=== PATIENT | male | born 1990 | race Two or more races ===

== ENCOUNTER 2018-10-06 16:16 | Emergency (ER) | payer OTHER ==
[~2018-10-06] VITALS: Ht 188 cm; Wt 81.8 kg
[2018-10-06 17:13] LABS: BASO % 1 % (0-3); EOS # 0.7 x10^3/uL (0.0-0.7); EOS % 12 % (0-3); HEMATOCRIT 45.5 % (39.0-53.0); LYMPH # 1.7 x10^3/uL (1.0-4.8); LYMPH % 28 % (24-48); MEAN CORPUSCULAR HEMOGLOBIN 33 pg (25-35); MEAN CORPUSCULAR HGB CONC 35 g/dL (31-37); MEAN CORPUSCULAR VOLUME 93 fL (79-100); MONO # 0.4 x10^3/uL (0.0-1.1); MONO % 7 % (0-9); NEUT # 3.2 x10^3uL (1.8-7.7); NEUT % 53 % (31-73); PLATELET COUNT 227 x10^3/uL (140-400); RED BLOOD COUNT 4.91 x10^6/uL (4.30-5.70); RED CELL DISTRIBUTION WIDTH 13.3 % (11.5-14.5); WHITE BLOOD COUNT 6.1 x10^3/uL (4.0-11.0)
--- NOTE | 2018-10-06 17:17 | EKG ---
[address] [address] Test Date: 2018-10-06 Test Time: 16:34:11 Pat Name: LEÓN PHILLIPS Department: Room: Gender: M [employer] Driver: : 1990 Requested By: SUJEY SHANKS Order Number: [id number] Reading MD: Cecilio Sanchez Measurements Intervals [place] Rate: 82 P: 47 [place]: 162 QRS: 39 QRSD: 98 T: -165 QT: 384 QTc: 452 Interpretive Statements SINUS RHYTHM ST & T ABNORMALITY, CONSIDER ANTERIOR ISCHEMIA OR LEFT VENTRICULAR STRAIN LATERAL ISCHEMIA OR LEFT VENTRICULAR STRAIN ABNORMAL ECG RI6.01 No previous ECG available for comparison Electronically Signed On 10-09-2018 9:02:31 ADMITTING SUPERVISOR by Cecilio Sanchez
[2018-10-06 17:19] LABS: BARBITURATES NEG (NEG); BENZODIAZEPINES NEG (NEG); CANNABINOIDS NEG (NEG); COCAINE NEG (NEG); METHADONE NEG (NEG); OPIATES NEG (NEG); PHENCYCLIDINE NEG (NEG)
[2018-10-06 17:21] LABS: AMPHETAMINE/METHAMPHETAMINE NEG (NEG)
[2018-10-06 17:33] LABS: ALBUMIN 3.9 g/dL (3.4-5.0); ALBUMIN/GLOBULIN RATIO 1.2 (1.0-1.7); CREATININE 1.1 mg/dL (0.7-1.3); GFR 79.1; MAGNESIUM 1.9 mg/dL (1.8-2.4); POTASSIUM 3.9 mmol/L (3.5-5.1); TOTAL BILIRUBIN 0.4 mg/dL (0.2-1.0); TOTAL PROTEIN 7.2 g/dL (6.4-8.2)
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
--- NOTE | 2018-10-06 18:36 | RAD ---
CHEST PA LATERAL History: pacemaker problems, pt shielded Comparison: None. Findings: The cardiomediastinal silhouette is normal. Pulmonary vasculature is normal. The lungs are clear. No pleural effusion or pneumothorax is seen. There is no acute bone abnormality. Dual-lead left-sided ICD is present. Sternal wire noted. IMPRESSION: No acute cardiopulmonary process. Electronically signed by: Gaudencio Orellana MD (10/06/2018 6:33 PM) [facility]
[2018-10-06] MEDS ORDERED: prednisoLONE SOD PHOSPHATE 15 MG/5 ML SOLUTION ONE (18:54)
[2018-10-06 19:20] VITALS: BP 132/70
== END 2018-10-06 19:37 | disposition home or self-care (01) ==
LOC: ER 16:16
DX: T82.897A Other specified complication of cardiac prosthetic devices, implants and grafts, initial encounter (principal); R20.0 Anesthesia of skin; I11.9 Hypertensive heart disease without heart failure; I43 Cardiomyopathy in diseases classified elsewhere
CPT/HCPCS: 36415; 71046; 80053; 80307; 82550; 83735; 83880; 84484; 85025; 93005; 99284-25

== ENCOUNTER 2019-04-03 05:14 | Emergency (ER) | payer SELFPAY ==
[~2019-04-03] VITALS: Ht 188 cm; Wt 81.8 kg
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
[2019-04-03 05:25] VITALS: BP 135/77
[2019-04-03] MEDS ORDERED: ASPIRIN 81 MG TAB.CHEW PO ONE (05:30)
[2019-04-03] MEDS ORDERED: IV RINGERS SOLUTION,LACTATED 1,000 ML IV SCH (05:30)
== END 2019-04-03 05:50 | disposition home or self-care (01) ==
LOC: ER 05:14
DX: T82.198A Other mechanical complication of other cardiac electronic device, initial encounter (principal); I11.9 Hypertensive heart disease without heart failure; I43 Cardiomyopathy in diseases classified elsewhere; F17.210 Nicotine dependence, cigarettes, uncomplicated; Z95.0 Presence of cardiac pacemaker
CPT/HCPCS: 99281

== ENCOUNTER 2019-04-23 07:26 | Emergency (ER) | payer SELFPAY ==
[~2019-04-23] VITALS: Ht 188 cm; Wt 81.8 kg
[2019-04-23 07:26] VITALS: BP 127/76
--- NOTE | 2019-04-23 07:49 | ED.ADGEN ---
Past History Past Medical History: Other Past Surgical History: Pacemaker, Other Smoking: Cigarettes Alcohol Use: None Drug Use: None Adult General Chief Complaint Chief Complaint Cough, chest soreness HPI HPI Patient is a 28-year-old male presents with cough, chest soreness with some shortness of breath for the past 2 weeks. Patient also reports was hoarseness. No fever chills, nausea vomiting or sweats. A gradually worse. Sputum is light yellow neck times screen. Denies history of asthma, although he has used an albuterol inhaler in the past. No fever chills or sweats. No other acute symptoms or complaints. History of hypertrophic cardiomyopathy with AICD placement. Patient states he's the process of getting established with a local primary care physician.[] Review of Systems Review of Systems Review symptoms as per history of present illness. All other review symptoms are negative. All other systems were reviewed and found to be within normal limits, except as documented in this note. Allergies Allergies Allergies Coded Allergies Type Severity Reaction Last Updated Verified No Known Drug Allergies 10/06/18 No Physical Exam Physical Exam Constitutional: Well developed, well nourished, no acute distress, non-toxic appearance. [] HENT: Normocephalic, atraumatic, bilateral external ears normal, oropharynx moist, no oral exudates, nose normal, voice hoarseness. [] Eyes: PERRLA, EOMI, conjunctiva normal, no discharge. [] Neck: Normal range of motion, no tenderness, supple, no stridor. [] Cardiovascular:Heart rate regular rhythm, no murmur [] Lungs & Thorax: Respirations unlabored, coarse rhonchi bilaterally, no wheezes or rales appreciated.[] Abdomen: Bowel sounds normal, soft, no tenderness. [] Skin: Warm, dry, no erythema, no rash. [] Back: No tenderness, no CVA tenderness. [] Extremities: No tenderness, no cyanosis, no clubbing, ROM intact, no edema. [] Neurologic: Alert and oriented X 3, normal motor function, normal sensory function, no focal deficits noted. [] Psychologic: Affect normal, judgement normal, mood normal. [] EKG EKG [] Radiology/Procedures Radiology/Procedures [] Course & Med Decision Making Course & Med Decision Making Pertinent Labs and Imaging studies reviewed. (See chart for details) [Acute bronchitis with bronchospasm. Antibiotics, mucolytic's an inhaler prescribed. Recommendations are to resume cardiac medications and follow-up with local PCP.] Final Impression Final Impression [1 acute bronchitis with bronchospasm] Ortiz Disclaimer Ortiz Disclaimer This electronic medical record was generated, in whole or in part, using a voice recognition dictation system. KYE TREJO DO Apr 23, 2019 07:49
[2019-04-23] MEDS ORDERED: DOXY100C2 PO (07:52)
[2019-04-23] MEDS ORDERED: ALBU6.7H8 IH (07:52)
[2019-04-23] MEDS ORDERED: GUAI12003 PO (07:52)
== END 2019-04-23 07:59 | disposition home or self-care (01) ==
LOC: ER 07:26
DX: J20.9 Acute bronchitis, unspecified (principal); F17.210 Nicotine dependence, cigarettes, uncomplicated; Z95.0 Presence of cardiac pacemaker
CPT/HCPCS: 99283

== ENCOUNTER 2019-05-14 17:59 | Emergency (ER) | payer SELFPAY ==
[~2019-05-14] VITALS: Ht 188 cm; Wt 81.8 kg
[~2019-05-14 17:59] MED LIST: ALBU6.7H8 IH; DOXY100C2 PO; GUAI12003 PO
[2019-05-14 18:00] VITALS: BP 131/77
[2019-05-14] MEDS ORDERED: CLIN150C14 PO (19:14)
--- NOTE | 2019-05-14 19:14 | PHYS DOC ---
Past History Past Medical History: Other Past Surgical History: Pacemaker, Other Smoking: Cigarettes Alcohol Use: None Drug Use: None Adult General Chief Complaint Chief Complaint: HAND PROBLEM HPI HPI Patient is a 28 year old male who presents with complaint of left thumb pain. The patient states that he works as a [employer]uh[employer] approximately one week ago accidentally got a splinter into his left thumb on the lateral side. Notes that he has had drainage from the affected area of greenish pus on 2 occasions since this happened. Notes that it started to swell and become more tender again over the last 2 days. It is concerned that he may have an infection. Notes that he was able to fully remove the wooden splinter prior to onset of symptoms. Review of Systems Review of Systems Constitutional: Denies fever or chills [] Musculoskeletal: Left thumb tip pain and swelling[] Integument: Denies rash or skin lesions [] Neurologic: Denies headache, focal weakness or sensory changes [] All other systems were reviewed and found to be within normal limits, except as documented in this note. Allergies Allergies Allergies Coded Allergies Type Severity Reaction Last Updated Verified No Known Drug Allergies 10/06/18 No Physical Exam Physical Exam Constitutional: Well developed, well nourished, no acute distress, non-toxic appearance. [] Skin: Warm, dry, no erythema, no rash. [] Extremities: Swelling and erythema along the dorsal lateral aspect of the left thumb near the nail bed, no palpable fluctuance, tender to palpation, full range of motion present, no lymphangitic streaking proximally. [] Neurologic: Alert and oriented X 3, normal motor function, normal sensory function, no focal deficits noted. [] Current Patient Data Vital Signs Vital Signs Date Time Temp Pulse Resp B/P (MAP) Pulse Ox O2 Delivery O2 Flow Rate FiO2 05/14/19 18:00 98.1 68 18 98 Room Air Lab Results Not performed EKG EKG Not performed[] Radiology/Procedures Radiology/Procedures Not performed[] Course & Med Decision Making Course & Med Decision Making Pertinent Labs and Imaging studies reviewed. (See chart for details) Patient appears to have cellulitis of the left thumb. Prescribed clindamycin for treatment. Advised follow-up with primary doctor in 3-5 days for reevaluati on. Advised return to emergency department for any worsening symptoms. Patient was understanding and in agreement with treatment plan. Dragon Disclaimer Dragon Disclaimer This electronic medical record was generated, in whole or in part, using a voice recognition dictation system. Departure Departure: Impression: Primary Impression: Cellulitis Disposition: HOME, SELF-CARE Condition: STABLE Referrals: PCP,ANISHA (PCP) Patient Instructions: Cellulitis Additional Instructions: Follow-up with your primary doctor in the next 3-5 days for reevaluation. Return to the emergency department for any worsening symptoms. Scripts Clindamycin Hcl (CLINDAMYCIN HCL) 150 Mg Capsule 450 MG PO TID for 7 Days, #63 CAP Prov: GERTRUDIS DOSHI MD 05/14/19 Problem Qualifiers Primary Impression: Cellulitis Site of cellulitis: extremity Site of cellulitis of extremity: finger Laterality: left Qualified Codes: L03.012 - Cellulitis of left finger GERTRUDIS DOSHI MD May 14, 2019 19:14
[2019-05-14] MEDS ORDERED: CLINDAMYCIN HCL 150 MG CAPSULE PO ONE (19:30)
== END 2019-05-14 20:00 | disposition home or self-care (01) ==
LOC: ER 17:59
DX: L03.012 Cellulitis of left finger (principal); F17.210 Nicotine dependence, cigarettes, uncomplicated; Z95.0 Presence of cardiac pacemaker
CPT/HCPCS: 99283